=== PATIENT | male | born 1960 | race Caucasian/White ===

== ENCOUNTER 2021-08-31 21:57 | Emergency (ER) | payer OTHER, SELFPAY ==
--- NOTE | ~2021-08-31 | CT_ITS ---
EXAMINATION: CT brain wo con INDICATION: Dizziness and hypertension COMPARISON: 01/03/2016 TECHNIQUE: Standard unenhanced head CT. The dose-length product (DLP) was 605.33 mGy-cm. The mA was a djusted according to patient size. Iterative reconstruction technique was employed. FINDINGS: There is no intracranial hemorrhage, acute infarction, or abnormal mass lesion. The ventric les are normal. There is no abnormal mass effect or midline shift. The cadena-white matter differentiat ion is normal. The basal cisterns are patent. The orbits are normal. The paranasal sinuses, mastoids and calvarium are normal. IMPRESSION: 1. No acute intracranial abnormality. Reviewed, dictated and finalized at location F.
--- NOTE | 2021-08-31 21:59 | ECG_ITS ---
Measurements Intervals [place] Rate: 76 P: 48 MI: 257 QRS: -77 QRSD: 190 T: 81 QT: 459 QTc: 518 Interpretive Statements ELECTRONIC VENTRICULAR PACEMAKER NORMAL SINUS RHYTHM ABNORMAL RHYTHM ECG NO PREVIOUS ECG AVAILABLE FOR COMPARISON Electronically Signed On 09-01-2021 13:42:41 CDT by Nadine Magdaleno M.D.
[2021-08-31 22:07] VITALS: BP 182/112; PULSE 100; RESP 18; TEMP 36.7; O2SAT 98
[2021-08-31 22:10] VITALS: PULSE 97; RESP 24; O2SAT 96
--- NOTE | 2021-08-31 22:19 | ED.DIZZY ---
HPI - Dizziness General Chief Complaint: Dizziness Stated Complaint: dizzy, feels like his pacemaker doesnt work Time Seen by Provider: 08/31/21 22:06 Source: patient and family Mode of arrival: ambulatory Limitations: no limitations History of Present Illness HPI Narrative: Pt says he sat up on the couch and felt very dizzy. Pt denies CP not sure about palpitations. Pt sat for awhile and the symptoms improved. Pt then went and laid down and the symptoms recurred. Pt changed position again and the symptoms improved. Pt denies WOO or one sided weakness. Pt feels better but not quite right. Pt had similar feeling when they were adjusting his pacemaker so he was worried it might not be working. MD elicited complaint: dizziness Onset (ago): minute(s) (30) Timing: sudden onset Severity: severe Description: sense of movement and room spinning Exacerbating factors: change in body position Relieving factors: remaining still Associated symptoms: nausea and nasal congestion Related Data Home Medications Medication Instructions Recorded Confirmed bisoprolol fumarate 5 mg tablet 5 mg PO DAILY 06/17/19 Allergies Allergy/AdvReac Type Severity Reaction Status Date / Time ciprofloxacin Allergy Unknown Rash Verified 08/31/21 22:22 shellfish derived Allergy Unknown Swelling Verified 08/31/21 22:22 of Lip/Tongue/Throat Review of Systems Review of Systems: All systems reviewed & are unremarkable except as noted in HPI and below PMFSH Past Medical History Medical History (Updated 06/17/19 @ 11:29 by Chrissy Neville PA-C) Hypertension Hypothyroidism Pacemaker (~2014) Thyroid cancer Surgical History Surgical History (Updated 06/17/19 @ 11:29 by Chrissy Neville PA-C) History of thyroidectomy (~2004) History of tonsillectomy (~1961) Family History Family History (Updated 06/17/19 @ 11:29 by Chrissy Neville PA-C) Father Hypertension Mother Hypertension Grandparent Lung cancer Grandparent Diabetes mellitus Social History Social History (Updated 06/17/19 @ 09:52 by Alma Hartley [facility]) Smoking status: Former smoker Tobacco type: cigarettes Second hand tobacco smoke exposure: Yes Smoking end date: 08/15/04 Alcohol intake: current Alcohol use details: drinks beer daily Substance use: never Exam Const: General: no acute distress Orientation/consciousness: patient oriented x3 HENMT: Head: normal to inspection Eyes: Conjunctivae: conjunctivae normal Pupils: Equal, round and reactive pupils present EOM: EOMs intact bilaterally Neck: Neck: normal visual inspection, no lymphadenopathy and no meningeal signs Resp: Effort & Inspection: normal respiratory effort Auscultation: clear to auscultation bilaterally Cardio: Rate: regular rate Rhythm: regular rhythm GI: Auscultation: normal bowel sounds Skin: General skin exam: normal color Neuro: General: patient oriented x3, moves all extremities, no meningeal signs and no focal motor deficits Cranial nerves: Yes Nystagmus not present Other: able to reproduce symptoms by laying flat and also sitting up rapidly. Symptoms fade when sitting upright and still. Finger nose intact. Steady with ambulation Extrem: General: normal to inspection and no clubbing, cyanosis or edema Psych: Appearance: grossly normal Mental Status: mental status grossly normal Thought content: Yes Normal thought content present Course Vital Signs Vital signs: Vital Signs Temperature 98.0 F 08/31/21 22:07 Pulse Rate 100 08/31/21 22:07 Respiratory Rate 18 08/31/21 22:07 Blood Pressure 182/112 H 08/31/21 22:07 Pulse Oximetry 98 08/31/21 22:07 Temperature 98.0 F 08/31/21 22:07 Pulse Rate 100 08/31/21 22:07 Respiratory Rate 18 08/31/21 22:07 Blood Pressure 182/112 H 08/31/21 22:07 Pulse Oximetry 98 08/31/21 22:07 MDM - Dizziness ECG Data EKG #1: Pacemaker function: normal pacer function D
[2021-08-31 22:32] LABS: Basophils Percent Auto 0.5 % (0.2-1.2); Eosinophils Absolute Auto 0.1 K/mm3 (0-0.3); Eosinophils Percent Auto 1.6 % (0-4.4); Hemoglobin 15.5 g/dL (14.0-18.0); Immature Granulocyte Absolute 0.01 K/mm3 (0.00-0.031); Immature Granulocyte Percent A 0.2 % (0-0.5); Lymphocytes Absolute Auto 1.42 K/mm3 (0.9-3.2); Lymphocytes Percent Auto 25.3 % (18.3-44.2); Mean Corpuscular HGB Conc 33.7 g/dl (32-36); Mean Corpuscular Hemoglobin 30.1 pg (26-34); Mean Corpuscular Volume 89.3 fl (80-100); Mean Platelet Volume 11.3 fl (7.4-10.4); Monocytes Absolute Auto 0.6 K/mm3 (0.1-0.6); Monocytes Percent Auto 10.3 % (2.6-8.5); Neutrophils Absolute Auto 3.5 K/mm3 (1.3-6.7); Neutrophils Percent Auto 62.1 % (45.5-73.1); Platelet Count Result 189 k/mm3 (150-375); Red Blood Count 5.15 M/mm3 (4.6-6.20); Red Cell Distribution Width 12.3 % (11.5-14.5); White Blood Count 5.6 K/mm3 (4.5-10.0)
[2021-08-31 22:40] VITALS: O2SAT 97
[2021-08-31] MEDS: MECLIZINE HCL 25 MG TABLET 50 MG PO (22:46)
[2021-08-31 22:47] LABS: Alanine Aminotransferase 40 U/L (4-50); Albumin Level 4.9 g/dL (3.5-5.1); Alkaline Phosphatase 55 U/L (38-126); Anion Gap 7 mmol/L (8-16); Aspartate Amino Transferase 42 U/L (17-59); Bilirubin,Total 0.4 mg/dL (0.2-1.3); Blood Urea Nitrogen 15 mg/dL (9-20); Calcium 9.5 mg/dL (8.4-10.2); Carbon Dioxide 28 mmol/L (22-30); Chloride 102 mmol/L (98-107); Estimated Glomerular Filt Rate 52; Glucose 117 mg/dL (65-110); Potassium 3.7 mmol/L (3.4-5.0); Sodium 137 mmol/L (137-145)
[2021-08-31 22:53] VITALS: PULSE 80; RESP 14; O2SAT 97
[2021-08-31 23:01] VITALS: BP 156/86; PULSE 79; RESP 16; O2SAT 96
[2021-08-31 23:02] VITALS: PULSE 77; RESP 14; O2SAT 97
== END 2021-08-31 23:10 | disposition home or self-care (01) ==
PROVIDERS: Emergency Medicine; Emergency Provider Emergency Medicine; PCP Internal Medicine Cardiovascular Disease
DX: H81.10 Benign paroxysmal vertigo, unspecified ear (principal); I10 Essential (primary) hypertension; Z85.850 Personal history of malignant neoplasm of thyroid; Z95.0 Presence of cardiac pacemaker; E89.0 Postprocedural hypothyroidism; Z87.891 Personal history of nicotine dependence
CPT/HCPCS: 36415; 70450; 80053; 85025; 93005; 99284; A9270

== ENCOUNTER 2024-06-14 07:41 | Outpatient (CLI) | payer OTHER, SELFPAY ==
--- OUTSIDE RECORDS SUMMARY | 2024-06-14 07:45 | XMS_ITS | Referral Summary ---
Author Organization [facility] Address [address] [place] [address] Care Team Providers Care Hide Salter Name Role Phone HaleGuera KT Primary Care Provider [phone] Encounters Date Type Department Care Team Description 04/11/2024 Orders Only [facility] [address] [place] [phone] Louis Mendoza MD Pacemaker (Primary Dx); Complete heart block (CMS/HCC) (HCC) 04/11/2024 3:00 PM MAT MAKING MACHINE TENDER Office Visit [facility] [address] [place] [phone] Louis Mendoza MD Complete heart block (CMS/HCC) (HCC) (Primary Dx); Dilated cardiomyopathy (CMS/HCC) (HCC); Pacemaker 04/11/2024 2:45 PM MAT MAKING MACHINE TENDER Ancillary Procedure [facility] [address] [place] [phone] Pacemaker; CHB (complete heart block) (CMS/HCC) (HCC) from Last 3 Months Allergies Active Allergy Reactions Criticality Noted Date Comments Ciprofloxacin Swelling Medium Shellfish Derived Hives Medium Medications levothyroxine (SYNTHROID) 125 mcg tablet Take 1 tablet (125 mcg total) by mouth strategy director before breakfast 0 Active bisoprolol-hydroCH LOROthiazide (ZIAC) 10-6.25 mg per tablet Take 1 tablet by mouth daily Active losartan (COZAAR) 50 mg tabletIndications: Benign essential HTN,Dilated cardiomyopathy (CMS/HCC) (HCC) Take 1 tablet (50 mg total) by mouth daily 30 tablet 11 4 07/17/19 25 Active Active Problems Problem Noted Date Diagnosed Date Dilated cardiomyopathy (CMS/HCC) 07/17/2023 Nonrheumatic aortic valve insufficiency 07/17/19 24 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 Dx; CHB. DOI 12/25/2014. Carelink rmeote monitoring Q3 mo, office pacer checks Q1 yr. 09/08/[address] Meade. Benign essential HTN 06/13/2017 Mixed hyperlipidemia 06/13/2017 Social History Tobacco Use Types Packs/Day Years Used Date Smoking Tobacco: Never Smokeless Tobacco: Never Tobacco Cessation:Counseling Given: Not Answered Alcohol Use Standard Drinks/Week Comments Yes 0 (1 standard drink = 0.6 oz pur e alcohol) Personal Safety Answer Date Recorded Have you ever been in or are you currently in a harmful physical or emotional relationship or is someone making you feel afraid or unsafe? Denies 12/27/2023 Sex and Gender Information Value Date Recorded Sex Assigned at Not on file Legal Sex Male 3:47 AM MAT MAKING MACHINE TENDER Gender Identity Male 06/01/2021 8:13 AM MAT MAKING MACHINE TENDER Sexual Orientation Straight 06/01/2021 8: 13 AM MAT MAKING MACHINE TENDER Last Filed Vital Signs Vital Sign Reading Time Taken Comments Blood Pressure 110/80 04/11/2024 2:35 PM MAT MAKING MACHINE TENDER Pulse 73 04/11/2024 2:35 PM MAT MAKING MACHINE TENDER Temperature - - Respiratory Rate 13 12/27/2023 3:15 PM CDT Oxygen Saturation 93% 04/11/2024 2:35 PM MAT MAKING MACHINE TENDER Inhaled Oxygen Concentration - - Weight 83.7 kg (184 lb 8.4 oz) 12/27/2023 11:00 AM CDT Height 182.9 cm (6') 12/27/2023 11:00 AM CDT Body Mass Index 25.03 12/27/2023 11:00 AM CDT Plan of Treatment Not on file Medical Devices Implanted Type Area Welder Gas Device Identifier Shelf Expiration Date Model / Serial / Lot Pacemaker-2014 Implanted:12/25 (Quantity not on file) Pacemaker Chest Medtronic CHB ADVISA DR IVEY / [id number] / Medtronic Inc Reeds S Mri Surescan 50.8x46.6mm 2 Chamber 7.4mm Pacemaker 22.5gm [id number] - [id number] Implanted:Qty: 1 on 12/27/2023 by Louis Mendoza MD at [facility] Pacemaker Medtronic Inc [id number] / / Procedures Procedure Name Priority Date/Time Associated Diagnosis Comments DEVICE CHECK - IN OFFICE Routine 04/11/2024 2:32 PM MAT MAKING MACHINE TENDER Pacemaker CHB (complete heart block) (CMS/HCC) (HCC) from Last 3 Months Results * DEVICE CHECK - IN OFFICE (04/11/2024 2:32 PM MAT MAKING MACHINE TENDER) Anatomical Region Laterality Modality Other Narrative 04/12/2024 3:25 PM MAT MAKING MACHINE TENDER Table formatting from the original result was not included. Patient ID: Alexander Winter is a 64 y.o. male This patient has a(n) Medtronic dual chamber pacemaker. They had a routine in-office device interrogation on 04/11/2024 Device implant indications: CHB Interrogation of the patient's device demonstrates the following: Presenting EGM: /DIRECTOR OF CASEWORK Underlying Rhythm: CHB Mode: DDD 60/150 bpm Device Settings Right Atrium Right Ventricle Sensitivity 0.3 mV 1.2 mV Pacing outputs 1.5 V @ 0.4 ms 3.5 V @ 0.4 ms Testing Measurements Right Atrium RA previous/trend Right Ventricle RV previous/trend Sensitivity 5.6 mV 5.4 mV paced paced Impedance 418 ohms 399 ohms 399 ohms 399 ohms Pacing threshold 0.75 V @ 0.4 ms 0.5 V @ 0.4 ms 1.75 V @ 0.4 ms 1.625 V @ 0.4 ms Pacing % 41.5% 46% 100% 100% Battery Status: 8.3 years to ZACKERY. Episodes last 90 days: None Comments: Programming appropriate for device measurements. Measured data stable. See attached report. Interrogation performed by Gabrielle Shaw RN. Medications: Anticoagulant(s): n/a Antiarrhythmic(s): bisoprolol Plan: Remote device checks quarterly, as scheduled. In-office device check annually. Gabrielle Shaw RN Louis Mendoza MD [facility] Final Result from Last [address] [facility] H[facility]/PPO [address] [address] [place] [address] [facility] H[facility]/PPO Address: [facility] [id number] [place], [place] [address] [address] Advance Directives For more information, please contact: [phone] * Full Code (Latest Code Status on File) Date Activated Date Inactivated Comments 12/27/2023 2:46 PM 12/27/2023 7:42 PM Care Teams Hide Salter Relationship Specialty Start Date End Date Guera Hale NP [address] [address] PCP - General Family Medicine 04/11/24
--- OUTSIDE RECORDS SUMMARY | 2024-06-14 07:45 | XMS_ITS | Clinical Summary ---
Author Organization [facility] Address [address] [place] [address] Care Team Providers Care Ditch Cleaner Name Role Phone Gaby Brand MD Primary Care Provider [phone] Allergies Active Allergy Reactions Criticality Noted Date Comments Ciprofloxacin Swelling Medium 12/30/2014 Shellfish Allergy Unknown,Hives Medium 12/30/2014 Medications levothyroxine (SYNTHROID) 125 MCG tabletIndications:P ostoperative hypothyroidism Take 1 tablet (125 mcg total) by mouth daily. 90 tablet 3 4 Active losartan (COZAAR) 50 MG tablet Take 1 tablet (50 mg total) by mouth daily. Active bisoprolol-hydroCHL OROthiazide (ZIAC) 10-6.25 MG tabletIndications:B enign essential HTN Take 1 tablet by mouth daily. 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 Dx; CHB. DOI 12/25/2014. Carelink rmeote monitoring Q3 mo, office pacer checks Q1 yr. Medtronic Dual Pacemaker. Dx; CHB. DOI 12/25/2014. Carelink rmeote monitoring Q3 mo, office pacer checks Q1 yr. Esophageal reflux 07/12/2013 Benign essential HTN 04/01/2013 Hypothyroidism 04/01/2013 Resolved Problems Problem Noted Date Diagnosed Date Resolved Date Neck pain 08/07/2020 09/09/2020 Health care maintenance 11/29/201901/06 Bronchitis 05/11/2018 09/28/2018 Sinusitis, unspecified chron icity, unspecified location 05/11/2018 09/28/2018 Fatigue 09/25/2017 11/29/2019 Increased glucose level 09/25/201711/06 Wears glasses 09/25/2017 01/17/2020 Encounters Date Type Department Care Team Description 04/12/2024 Scan [facility] Scanned, [facility] 04/11/2024 Scan [facility] INFO SRVCS Scanned, [facility] from Last 3 Months Immunizations Name Administration Dates Next Due Flublok (Quadrivalent) 01/26/2021,01/14/2020 Fluzone 6 Months+ Quad (0.5 mL Prefilled Syringe) 03/09/2019 Influenza (Generic) 01/26/2021 Influenza Adult (Generic) 02/14/2022,01/14/2020, 03/09/2019 PFIZER COVID-19 (ORIGINAL FO RMULATION, PURPLE CAP) mRNA, LNP-S, PF, 30 MCG/0.3 ML DOSE 02/04/2021,07/04/2020,06/13/2020 Tdap (Adacel) 09/16/2018 Family History Medical History Relation Comments Thyroid Mother healthy Mother None Neg Hx Relation Status Comments Father Alive Mother Alive Social History Tobacco Use Types Packs/Day Years Used Date Smoking Tobacco: Former Cigarettes 1 20 Smokeless Tobacco: Never Tobacco Cessation:Counseling Given: No Alcohol Use Standard Drinks/Week Comments Yes 1.7 (1 standard drink = 0.6 oz p ure alcohol) 1-2 daily AUDIT-C Answer Date Recorded Frequency of Alcohol Consumption 2-3 times a wee k 05/11/2018 Average Number of Drinks 1 or 2 019 Frequency of Binge Drinking Never 08/2018 PHQ-2 Answer Date Recorded Patient Health Questionnaire-2 Score 0 10/12/2023 Education Answer Date Recorded What is the highest level of school you have completed or the highest degree you have received? High school graduate 05/11/2018 Sex and Gender Information Value Date Recorded Sex Assigned at Not on file Legal Sex Male 6:42 PM CDT Gender Identity Not on file Sexual Orientation Not on file Last Filed Vital Signs Vital Sign Reading Time Taken Comments Blood Pressure 148/82 10/12/2023 2:09 PM CDT Pulse 66 10/12/2023 1:49 PM CDT Temperature 36.8 C (98.3 F) 10/12/2023 1:49 PM CDT Respiratory Rate 16 10/12/2023 1:49 PM CDT Oxygen Saturation 98% 10/12/2023 1:49 PM CDT Inhaled Oxygen Concentration - - Weight 82.9 kg (182 lb 12.8 oz) 10/12/2023 1:49 PM CDT Height 182.9 cm (6') 10/12/2023 1:49 PM CDT Body Mass Index 24.79 10/12/2023 1:49 PM CDT Plan of Treatment Health Maintenance Due Date Last Done Comments Annual Physical 1965 Hepatitis C 1980 Lung Cancer Screening 2012 Zoster Vaccines (1 of 2) 2012 COVID-19 Vaccine ( season) 2024 02/14/2022, 02/04/2021, 07/04/2020, Additional history exists Influenza Adult (#1) 2024 03/09/2023, 02/14/2022, 01/26/2021, Additional history exists PHQ-2 (Physician Victoria) 05/08/2024 10/12/2023 PHQ-2 (Physician Victoria) 10/11/2024 10/12/2023 DTaP, Tdap and Td Vaccines (2 - Td or Tdap) 09/16/2028 09/16/2018 Colorectal Cancer Screening Colonoscopy (10 Years) 06/03/2030 06/03/2020, 09/20/2013, 09/20/2013 RSV Immunization or 60+ Years (1 - 1-dose 75+ series) 2037 Meningococcal B Vaccine Aged Out No l onger eligible based on patient's age to complete this topic Meningococcal Vaccine Aged Out No lucas nahum eligible based on patient's age to complete this topic Pneumococcal Vaccine: Pediatrics (0 to 5 Years) and At-Risk Patients (6 to 64 Years) Aged Out No longer eligible based on patient's age to complete this topic RSV Immunizations Under 20 Months Aged Out No longer eligible based on patient's age to complete this topic Medical Devices Implanted Type Area Care Aid Device Identifier Shelf Expiration Date Model / Serial / Lot Pacemaker Pacemaker Procedures Procedure Name Priority Date/Time Associated Diagnosis Comments COLONOSCOPY Routine 09/20/2013 12:00 AM CDT from Last 3 Months or Most Recently Relevant to Health Maintenance Results * Colonoscopy (09/20/2013 12:00 AM CDT) 09/20/2013 09/20/2013 Narrative [facility] TO EPIC CONVERSION - 09/20/2013 12:00 AM CDT Documented hx of procedure Procedure Note Breanna Loredo MD - 03/11/2018 Documented hx of procedure us Generic Conversion Md [facility] PROCEDURE ORDERABLES Final Result [facility] TO EPIC CONVERSION from Last 3 Months or Most Recently Relevant to Health Maintenance Insurance Care Teams Ditch Cleaner Relationship Specialty [place] [address] [place] [address] PCP - General FAMILY PRACTICE 10/06/22
--- OUTSIDE RECORDS SUMMARY | 2024-06-14 07:45 | XMS_ITS | Encounter Summary ---
Author Organization [facility] Address [facility] [place] [address] Care Team Providers Care Filling Mixer Name Role Phone Rob Dacosta MD Primary Care Provider U Princess Deng APRN Primary Care Provider [phone] Gaby Brand MD Primary Care Provider [phone] Encounter Details Date Type Department Care Team (Late st Contact Info) Description 05/28/2021 [employer] Message Enc [facility] Family & Internal Medicine [address] [address] Nicole Ambrosio, VISUAL MERCHANDISING DIRECTOR [facility] - [employer] Social History Tobacco Use Types Packs/Day Years Used Date Smoking Tobacco: Former Cigarettes 1 20 Smokeless Tobacco: Never Alcohol Use Standard Drinks/Week Comments Yes 1.7 (1 standard drink = 0.6 oz p ure alcohol) 1-2 daily AUDIT-C Answer Date Recorded Frequency of Alcohol Consumption 2-3 times a wee k 05/11/2018 Average Number of Drinks 1 or 2 019 Frequency of Binge Drinking Never 08/2018 PHQ-2 Answer Date Recorded PHQ-2 Score - If the patient scores above 3, please move on to questions 3-9 0 11/29/2019 Education Answer Date Recorded What is the highest level of school you have completed or the highest degree you have received? High school graduate 05/11/2018 Sex and Gender Information Value Date Recorded Sex Assigned at Not on file Legal Sex Male 6:42 PM CDT Gender Identity Not on file Sexual Orientation Not on file COVID-19 Exposure Response Date Recorded In the last month, have you been in contact with someone who was confirmed or suspected to have Coronavirus / COVID-19? No / Unsure 05/27/2021 4:18 PM AUTOMOTIVE TITLE CLERK documented as of this encounter Plan of Treatment Not on file documented as of this encounter Visit Diagnoses Not on filedocumented in this encounter Care Teams Filling Mixer Relationship Specialty Start Date End Date Rob Dacosta MD PCP - General INTERNAL MEDICINE 04/07/20 08/11/22 Princess Baptiste APRN [address] [place] [address] PCP - General NURSE PRACTITIONER 08/12/22 10/05/22 [place] [address] [address] [place] [address] PCP - General FAMILY PRACTICE 10/06/22 documented as of this encounter
--- OUTSIDE RECORDS SUMMARY | 2024-06-14 07:45 | XMS_ITS | Encounter Summary ---
Author Organization [facility] Address [address] [facility] [address] [place] [address] Care Team Providers Care Primer Boxer Name Role Phone Rob Dacosta MD Primary Care Provider Tisha Swenson MD Primary Care Provider [phone] Rob Dacosta MD Primary Care Provider Gaby Brand MD Primary Care Provider [phone] Guera Hale NP Primary Care Provider [phone] Encounter Details Date Type Department Care Team (Late st Contact Info) Description 06/15/2016 Orders Only [facility] ProviderJose MD [address] [place] [id number] Social History Tobacco Use Types Packs/Day Years Used Date Smoking Tobacco: Never Alcohol Use Standard Drinks/Week Comments Yes 0 (1 standard drink = 0.6 oz pur e alcohol) Sex and Gender Information Value Date Recorded Sex Assigned at Not on file Legal Sex Male 3:47 AM CULINARY MANAGER Gender Identity Male 06/01/2021 8:13 AM CULINARY MANAGER Sexual Orientation Straight 06/01/2021 8: 13 AM CULINARY MANAGER documented as of this encounter Plan of Treatment Not on file documented as of this encounter Procedures Procedure Name Priority Date/Time Associated Diagnosis Comments CARDIOLOGY REPORT 06/15/2016 documented in this encounter Results * CARDIOLOGY REPORT (06/15/2016) Anatomical Region Laterality Modality Other Narrative 06/15/2016 Ordered by an unspecified provider. Historical Provider [facility]URADO Final Result documented in this encounter Visit Diagnoses Not on filedocumented in this encounter Care Teams Primer Boxer Relationship Specialty [place] [address] [place] [address] PCP - General 06/15/16 06/25/19 [place] [address] [place] [address] PCP - General Family Medicine 06/26/19 10/22/19 [place] [address] [place] [address] PCP - General Internal Medicine 10/23/19 12/27/22 [place] [address] [address] PCP - General Family Medicine 12/28/22 04/10/24 Guera Hale NP [address] [address] PCP - General Family Medicine 04/11/24 documented as of this encounter
--- OUTSIDE RECORDS SUMMARY | 2024-06-14 07:45 | XMS_ITS | Encounter Summary ---
Author Organization [facility] Address [facility] [place] [address] Care Team Providers Care Power Tong Operator Name Role Phone Rob Dacosta MD Primary Care Provider U Princess Deng APRN Primary Care Provider [phone] Gaby Brand MD Primary Care Provider [phone] Encounter Details Date Type Department Care Team (Late st Contact Info) Description 05/26/2020 Prep for Procedure [facility] [address] [place], [place] [id number] Parminder Yi MD [address] [address] Social History Tobacco Use Types Packs/Day Years [...] have Coronavirus / COVID-19? No / Unsure 05/25/2020 8:03 AM M[facility] SET UP documented as of this encounter Plan of Treatment Not on file documented as of this encounter Results * PRE-SURGICAL/PRE-PROCEDURE CORONAVIRUS (COVID 19) (05/31/2020 9:54 AM MILL SET UP) CORONAVIRUS SARS COV 2 PCR (RESP) NOT DETECTED NOT DETECTED 06/01/2020 4:46 PM MILL SET UP [facility] Comment: A Not Detected (negative) test result for this test means that SARS- CoV-2 RNA was not present in the specimen above the limit of detection. A negative result does not rule out the possibility of COVID-19 and should not be used as the sole basis for treatment or patient management decisions. If COVID-19 is still suspected, based on exposure history together with other clinical findings, re-testing should be considered in consultation with public health authorities. Laboratory test results should always be considered in the context of clinical observations and epidemiological data in making a final diagnosis and patient management decisions. Please review the Fact Sheets and FDA authorized labeling available for health care providers and patients using the following websites: https://www.[employer]/home/Covid-19/HCP/NAAT/fact-sheet2 https://www.[employer]/home/Covid-19/Patients/NAAT/ fact-sheet2 This test has been authorized by the FDA under an Emergency Use Authorization (EUA) for use by authorized laboratories. Due to the current public health emergency, [employer] [facility] is receiving a high volume of samples from a wide variety of swabs and media for COVID-19 testing. In order to serve patients during this public health crisis, samples from appropriate clinical sources are being tested. Negative test results derived from specimens received in non-commercially manufactured viral collection and transport media, or in media and sample collection kits not yet authorized by FDA for COVID-19 testing should be cautiously evaluated and the patient potentially subjected to extra precautions such as additional clinical monitoring, including collection of an additional specimen. Methodology: Nucleic Acid Amplification Test (NAAT) includes RT-PCR or TMA Additional information about COVID-19 can be found at the [employer] website: www.[employer]/Covid19. Test performed at [facility] [address] [place] [id number] Director: NAIA JASMINE DO,MPH FIRST TEST UNKNOWN 05/31/2020 9:[address] [facility] EMPLOYED IN HEALTHCARE NO 05/31/2020 9:[address] [facility] SYMPTOMATIC DEFINED BY CDC NO 05/31/2020 9:[address] [facility] DATE OF SYMPTOM ONSET UNKNOWN 05/31/2020 10:[address] [facility] HOSPITALIZATION STATUS NO 05/31/2020 9:[address] [facility] PATIENT IN ICU NO 05/31/2020 9:[address] [facility] RESIDENT OF [facility] CARE NO 05/31/2020 9:[address] [facility] NO 05/31/2020 10:[address] [facility] PATIENT'S RACE WHITE OR 05/31/2020 9:[address] [facility] ETHNICITY NONHISPANIC 05/31/2020 9:[address] [facility] SOURCE (QST) NASOPHARYNGEAL SWAB 05/31/2020 9:[address] [facility] NASOPHARYNGEAL SWAB / Unknown 05/31/2020 9:54 AM [facility] SET UP Parminder Yi MD MICROBIOLOGY - GENERAL ORDERABLE S Final Result [facility] [address] [place] [address], [place] [phone] [facility] [address] [place] [address], DH documented in this encounter Visit Diagnoses Diagnosis Preop testing- Primary Preoperative examination, unspecified documented in this encounter Additional Health Concerns Infection Onset Date Last Indicated Resolved Time COVID-19 Rule Out 05/31/2020 05/31/2020 06/01/2020 4:47 PM [facility] SET UP documented as of this encounter Care Teams Power Tong Operator Relationship Specialty Start Date End Date Rob Dacosta MD PCP - General INTERNAL MEDICINE 04/07/20 08/11/22 Princess Baptiste APRN [address] [place] [address] PCP - General NURSE PRACTITIONER 08/12/22 10/05/22 [place] [address] [place] [address] PCP - General FAMILY PRACTICE 10/06/22 documented as of this encounter
--- OUTSIDE RECORDS SUMMARY | 2024-06-14 07:45 | XMS_ITS | Encounter Summary ---
Author Organization [facility] Address [facility] [place] [address] Care Team Providers Care Row Boss Name Role Phone Rob Dacosta MD Primary Care Provider U Princess Deng APRN Primary Care Provider [phone] Gaby Brand MD Primary Care Provider [phone] Reason for Visit * Reason Onset Date Comments Medication Request 06/21/2021 Encounter Details Date Type Department Care Team (Late st Contact Info) Description 06/21/2021 [employer] Message Enc [facility] Family & Internal Medicine [address] [id number] R[facility] Provider BP med Social History Tobacco Use Types Packs/Day Years [...] COVID-19? No / Unsure 05/27/2021 4:18 PM [employer] DIRECTOR documented as of this encounter Progress Notes * Briana Neil RN - 06/29/2021 2:03 PM CST Medication was sent in yesterday ANCE DIRECTOR * Becca Brady LPN - 06/25/2021 9:47 AM CST Pt called about refill for B/P med bisoprolol-HTCZ 5-6.[address] SANDHU send refill to [facility] [phone] ANCE DIRECTOR documented in this encounter Plan of Treatment Not on file documented as of this encounter Visit Diagnoses Not on filedocumented in this encounter Care Teams Row Boss Relationship Specialty Start Date End Date Rob Dacosta MD PCP - General INTERNAL MEDICINE 04/07/20 08/11/22 Princess Baptiste APRN [address] [place] [address] PCP - General NURSE PRACTITIONER 08/12/22 10/05/22 [place] [address] [place] [address] PCP - General FAMILY PRACTICE 10/06/22 documented as of this encounter
--- OUTSIDE RECORDS SUMMARY | 2024-06-14 07:45 | XMS_ITS | Encounter Summary ---
Author Organization [facility] Address [address] [place] [address] Care Team Providers Care Home Care Giver Name Role Phone Rob Dacosta MD Primary Care Provider Tisha Swenson MD Primary Care Provider [phone] Rob Dacosta MD Primary Care Provider Gaby Brand MD Primary Care Provider [phone] Guera Hale NP Primary Care Provider [phone] Encounter Details Date Type Department Care Team (Late st Contact Info) Description 09/21/2016 Orders Only [facility] ProviderJose MD [address] [place] [address] Social History Tobacco Use Types Packs/Day Years Used Date Smoking Tobacco: Never Alcohol Use Standard Drinks/Week Comments Yes 0 (1 standard drink = 0.6 oz pur e alcohol) Sex and Gender Information Value Date Recorded Sex Assigned at Not on file Legal Sex Male 3:47 AM BIG DATA SOFTWARE ENGINEER Gender Identity Male 06/01/2021 8:13 AM BIG DATA SOFTWARE ENGINEER Sexual Orientation Straight 06/01/2021 8: 13 AM BIG DATA SOFTWARE ENGINEER documented as of this encounter Plan of Treatment Not on file documented as of this encounter Procedures Procedure Name Priority Date/Time Associated Diagnosis Comments CARDIOLOGY REPORT 09/21/2016 documented in this encounter Results * CARDIOLOGY REPORT (09/21/2016) Anatomical Region Laterality Modality Other Narrative 09/21/2016 Ordered by an unspecified provider. Historical Provider [facility] Final Result documented in this encounter Visit Diagnoses Not on filedocumented in this encounter Care Teams Home Care Giver Relationship Specialty [place] [address] [place] [address] PCP - General 06/15/16 06/25/19 [place] [address] [place] [address] PCP - General Family Medicine 06/26/19 10/22/19 [place] [address] [place] [address] PCP - General Internal Medicine 10/23/19 12/27/22 [place] [address] [address] PCP - General Family Medicine 12/28/22 04/10/24 Guera Hale NP [address] [address] PCP - General Family Medicine 04/11/24 documented as of this encounter
[2024-07-01 13:50] VITALS: BMI 24.4
--- NOTE | 2024-07-01 13:50 | P.SLEEP_ITS ---
Sleep Study - Home Unattended Date of Study: 06/14/24 Ordering Provider: Guera Hale NP Interpreting Provider: Jessica Taylor, DO Home Sleep Study Type: Watch PAT Height: 1.83 m Weight: 81.647 kg Body Mass Index: 24.4 Neck Circumference (inches): 16.5 [place]: 2 Reason for Sleep Study Loud snoring Sleep History The patient is a 64-year-old male that had a sleep study ordered by his primary care for evaluation of sleep apnea. The patient denies awakening from sleep short of breath. He denies awakening at night with heartburn, belching or cough. He frequently snores and is frequently loud enough that others complain. He rarely has trouble sleeping when he has cold. He denies waking gasping for air throughout the night. He rarely has breathing problems at night observed by himself or others. He rarely sweats excessively at night. He denies having heart palpitations or irregular heartbeats during the night. He denies falling asleep during the day and while driving. He denies sleep paralysis, cataplexy and hypnagogic/ hypnopompic hallucinations. He denies having trouble at school or work due to sleepiness. He denies feeling afraid of going to sleep. He rarely has nightmares. He frequently remembers his dreams. He frequently has thoughts racing through his mind. He rarely feels sad, depressed or anxious. He denies having muscular tension. He denies noticing parts of his body jerk. He denies kicking during the night. He denies having crawling and aching feelings in his legs and denies having leg pain during the night. He occasionally grinds his teeth during sleep but never awakens with morning jaw pain. He is rarely bothered by pain during the day but never awakened by pain during the night. He denies waking up feeling stiff in the morning. He denies waking up with sore or achy muscles. He denies waking up with pain in the neck, spine and other joints. He goes to bed at 9:00 p.m. on both weekdays and weekends. It takes him 5 minutes to fall asleep. He wakes up once throughout the night at most for unknown reasons and is able to fall back asleep immediately. He wakes up between 4 12:30 p.m. daily. He gets 7-8 hours of sleep per night. He does not stay in bed after waking up in the morning. He currently lives with his . He denies consuming any caffeinated beverages within 2 hours of bedtime. He denies engaging in physical exercise before bedtime. He will watch television before falling asleep. He denies taking naps in afternoon or the evening. He consumes 4 caffeinated beverages per day. He quit smoking cigarettes 20 years ago. He has 1 alcoholic beverage at most per day. He denies recreational drug use. [facility] Past Medical History Medical History Witnessed episode of apnea Snoring Heart block Thyroid cancer Hypothyroidism Pacemaker (~2014) Hypertension Surgical History Surgical History History of tonsillectomy (~196) History of thyroidectomy (~2004) Family History Family History Father Hypertension Mother Hypertension Heart disease Grandparent Lung cancer Grandparent Diabetes mellitus Sibling Hypertension Malignant neoplasm of prostate Sibling History of kidney cancer Social History Social History Smoking status: Former smoker Tobacco type: cigarettes Second hand tobacco smoke exposure: Yes Smoking end date: 08/15/04 Alcohol intake: current Alcohol use details: drinks beer daily Substance use: never Medications Home Medications ?Medication ?Instructions ?Recorded ?Confirmed ?Type Synthroid 125 mcg tablet 125 mcg PO DAILY #90 tabs 03/29/24 03/29/24 Rx (levothyroxine) bisoprolol 10 1 tablet PO DAILY #90 tabs 03/29/24 03/29/24 Rx mg-hydrochlorothiazide 6.25 mg tablet losartan 50 mg tablet 50 mg PO DAILY #90 tabs 03/29/24 03/29/24 Rx Sleep Procedure The sleep study was completed using ElixentT a technically adequate device with seven channels: peripheral arterial tone, actigraphy, body position, snore, respiratory movement, pulse oximetry, sleep staging, and heart rate. Prior to using the device, the patient received verbal and written instructions for its application and was provided with the help desk phone number for additional telephonic instruction with 24-hour availability of qualified personnel to answer questions. The study was scored using CMS guidelines. Sleep Architecture The total recording time is 6 hrs, 57 min. The total sleep time is 6 hrs, 5 min. Sleep latency is 17 minutes. REM latency is 95 minutes. The patient had 6 episodes of waking. Sleep architecture shows 9.6% deep sleep, 69.8% light sleep, and (as % Total Sleep Time) showed NREM (Light 69.8%; Deep 9.6%), and a 20.6% stage REM. The patient spent 9.0% of total sleep time in the supine position. Sleep efficiency was 87.53. Respiratory Analysis The overall AHI (pAHI 3%:) is 4.6. The central AHI is 2.6. The AHI was 4.1 in NREM and 6.6 in REM sleep. The AHI was 9.1 in Supine and 4.2 in Non-supine sleep. Percent of Chidi Navarro respirations is 0.0. Oximetry Data The oxygen desaturation index (JANNY 4%:) is 1.9. The mean saturation is 95%, and the lowest saturation is 85%. Time spent with saturation < 88% is 0.1 minutes. Snoring Profile Snoring average intensity is 43 dB. The patient snored above 45 decibels for 77.9 minutes, 21.3% of sleep time. Cardiac Profile The average pulse rate is 63 beats per minutes. The lowest pulse rate is 52 bpm. The highest pulse rate reported is 98 bpm. Atrial fibrillation was not detected. Premature beats occur <0.1 per minute. Assessment and Plan Assessment and Plan (1) Snoring: Code(s): R06.83 - Snoring Status: Acute Assessment and Plan: The patient had an overall AHI of 1.2 with desaturation down to 85%. This is not consistent with sleep disordered breathing. In general, snoring can be improved by smoking cessation, weight loss, alcohol avoidance several hours before bedtime, elevating the head of the bed by 6-9 inches and sleeping in the lateral position. For patients with chronic nasal congestion, we suggest a trial of intranasal glucocorticoids. For patients who continue to snore despite conservative therapy and relief of any nasal congestion, we suggest a trial of an external nasal dilator such as Breathe Right strips. Data The data obtained during this sleep study is adequate for interpretation. Certification This sleep study has been reviewed by a board certified sleep medicine physician.
== END 2024-06-17 12:35 | disposition home or self-care (01) ==
LOC: ANHCSM 07:42
PROVIDERS: PCP Nurse Practitioner Family; Visit Provider Nurse Practitioner Family
DX: G47.30 Sleep apnea, unspecified (principal); R06.83 Snoring; I45.9 Conduction disorder, unspecified; I10 Essential (primary) hypertension
CPT/HCPCS: 95800

== ENCOUNTER 2024-11-02 08:49 | Emergency (ER) | payer OTHER, SELFPAY ==
[2024-11-02 08:57] VITALS: BP 148/79; PULSE 67; RESP 18; TEMP 36.2; O2SAT 100
--- NOTE | 2024-11-02 09:19 | ED.SKABFB ---
HPI - Skin/Abscess/Foreign Bdy General Chief complaint: Skin/Abscess/Foreign Body Stated complaint: Insect Bite LT Hand Source: patient Mode of arrival: ambulatory Limitations: no limitations History of Present Illness HPI narrative: Patient is a 64-year-old male who presents to the clinic with complaints of a wasp sting to his left fifth finger that occurred 2 days ago. He states over the last 2 days his hand has started swelling. He has been taking Benadryl every 6 hours for the last 2 days, but still is noticing increased swelling in his hand. Denies any shortness of breath, fever, warmth at the site, body aches, chills, nausea, vomiting, diarrhea, numbness or tingling. Related Data Allergies Allergy/AdvReac Type Severity Reaction Status Date / Time shellfish derived Allergy Severe Swelling Verified 11/02/24 08:52 of Lip/Tongue/Throat ciprofloxacin Allergy Mild Rash Verified 11/02/24 08:52 Review of Systems Review of Systems: CONSTITUTIONAL: Denies body aches, fever, chills, or sweats. EYES: Denies visual changes, redness, or discharge. ENT: Denies rhinorrhea, congestion CARDIOVASCULAR: Denies chest pain, palpitations, or edema. RESPIRATORY: Denies cough or dyspnea. GASTROINTESTINAL: Denies abdominal pain, nausea, vomiting, or diarrhea. SKIN: Reports a wasp sting to his left little finger. MUSCULOSKELETAL: Denies back pain, joint pain, or myalgia. NEUROLOGIC: Denies headache, numbness, tingling, or weakness. All systems reviewed & are unremarkable except as noted in HPI and below PMFSH Past Medical History Medical History Witnessed episode of apnea Snoring Heart block Thyroid cancer Hypothyroidism Pacemaker (~2014) Hypertension Surgical History Surgical History History of tonsillectomy (~1961) History of thyroidectomy (~2004) Family History Family History Father Hypertension Mother Hypertension Heart disease Grandparent Lung cancer Grandparent Diabetes mellitus Sibling Hypertension Malignant neoplasm of prostate Sibling History of kidney cancer Social History Social History Smoking status: Former smoker Tobacco type: cigarettes Second hand tobacco smoke exposure: No Smoking end date: 05/08/01 Alcohol intake: current Alcohol use details: drinks beer daily Substance use: never Comments At time of signature, I have reviewed and agree with nursing past medical, surgical, social and family history unless otherwise noted. Please see nursing chart for further information. There is no relevant family history pertinent to the presenting complaint. Exam Narrative: GENERAL: Well-appearing HEAD: Normocephalic, atraumatic. EYES: ?conjunctivae clear, and EOMI. ENT: Mucous membranes moist. Oropharynx without edema, erythema or lesions. NECK: Supple. No lymphadenopathy CHEST: Clear to auscultation. HEART: Regular rate and rhythm. SKIN: Warm, dry. ?Small puncture site c/w wasp sting noted to left fifth finger at PIP dorsal aspect. Edema noted to left hand extending into left wrist. No erythema, induration, pain with palpation. NEURO: ?Alert and oriented x3.? Course Course Level of Care: Express Care Visit Vital Signs Vital signs: Vital Signs Temperature 97.1 F L 11/02/24 08:57 Pulse Rate 67 11/02/24 08:57 Respiratory Rate 18 11/02/24 08:57 Blood Pressure 148/79 H 11/02/24 08:57 Pulse Oximetry 100 11/02/24 08:57 Oxygen Delivery Room Air 11/02/24 08:57 Temperature 97.1 F L 11/02/24 08:57 Pulse Rate 67 11/02/24 08:57 Respiratory Rate 18 11/02/24 08:57 Blood Pressure 148/79 H 11/02/24 08:57 Pulse Oximetry 100 11/02/24 08:57 Oxygen Delivery Room Air 11/02/24 08:57 Reviewed MDM - Skin/Abscess/Foreign Bdy MDM Narrative Medical decision making narrative: Discussed physical exam findings. Prednisone prescription Advised supportive measures and signs/symptoms to go to the ER. Pt is appropriate for outpatient treatment and follow up. Differential Diagnosis Differential diagnosis: Likely cellulitis, insect bites and other (allergic reaction to insect bite) Critical Care Time Critical Care Time Critical Care Time: No Discharge Plan Discharge Clinical Impression: Allergic reaction to insect bite Patient Disposition: Home Condition: Stable Instructions: Insect Bite or Sting (ED) Additional Instructions: Take steroid as prescribed. Clean with soap and water only; Avoid using alcohol and peroxide Alternate Tylenol/ibuprofen for as needed for pain Acetaminophen(Tylenol). Apply ice to area 15 minutes on 15 minutes off Please schedule a follow up visit with your personal physician for further evaluation and treatment within 3-5days OR if your symptoms persist, change or worsen significantly before you can contact your personal physician then please, without delay, go to the emergency department for further evaluation. If you experience any worsening redness, swelling, streaking (red lines), fever or chills please go to the ER Patient Language: Bots[place]an Prescriptions: New prednisone 20 mg tablet 40 mg PO DAILY 5 Days Qty: 10 0RF No Action losartan 100 mg tablet 100 mg PO DAILY Qty: 90 3RF bisoprolol-hydrochlorothiazide 10-6.25 mg tablet 1 tablet PO DAILY Qty: 90 3RF levothyroxine [Synthroid] 125 mcg tablet 125 mcg PO DAILY Qty: 90 3RF Follow-up/Referrals: Guera Hale NP [Primary Care Provider] - Time of Disposition: 09:18
== END 2024-11-02 09:27 | disposition home or self-care (01) ==
PROVIDERS: PCP Nurse Practitioner Family
DX: T63.461A Toxic effect of venom of wasps, accidental (unintentional), initial encounter (principal); Z87.891 Personal history of nicotine dependence; I10 Essential (primary) hypertension; E89.0 Postprocedural hypothyroidism; Z95.0 Presence of cardiac pacemaker; Z85.850 Personal history of malignant neoplasm of thyroid
CPT/HCPCS: 99213; G0463